=== PATIENT | female | born 1960 | race Caucasian/White ===

== ENCOUNTER 2016-11-30 21:13 | Emergency (ER) | payer MEDICAID ==
[~2016-11-30] VITALS: Ht 162.6 cm; Wt 66.0 kg
[~2016-11-30 21:13] MED LIST: CIPR500T4 PO; NAPR-688 PO
[2016-11-30 21:32] VITALS: Ht 162.6 cm; Wt 66.0 kg
--- NOTE | 2016-12-01 01:16 | ERD ---
ER Documentation Chief Complaint Date/Time DATE: 12/01/16 TIME: 01:11 Chief Complaint Bilateral eye pain X3 days HPI This pleasant 56-year-old female presents in onset of bilateral eye pain, redness, and discharge. Symptoms started 3 days ago. Patient denies any injury , denies any contact with people with similar symptoms. Patient has small children at home reports she is the only person in her house with these symptoms. Patient denies runny nose cough or nasal congestion, denies change in vision, or headache. Patient has tried no [id number]-[id number] eyedrops for symptomatic relief. ROS All systems reviewed and are negative except as per history of present illness. Medications Home Meds Active Scripts Sulfacetamide Sodium* (Bleph-10*) 10% - 3.5 Gm Opht Oint...g., 1 APPLIC BOTH EYES QID, #1 TUB Prov:LOLARADHAVAMSI 12/01/16 Ciprofloxacin Hcl* (Ciprofloxacin Hcl*) 500 Mg Tablet, 500 MG PO BID, #10 TAB Prov:GREENRYANNARENDRA DO 06/13/16 Naproxen* (Naproxen*) 500 Mg Tablet, 375 MG PO BID, #14 TAB Prov:GREENDANARENDRA DO 06/13/16 Allergies Allergies: Coded Allergies: No Known Allergy (Unverified , 06/12/16) PMhx/Soc History of Surgery: Yes (KIDNEY SURGERY 1999) Anesthesia Reaction: No Hx Neurological Disorder: No Hx Respiratory Disorders: No Hx Cardiac Disorders: Yes (HTN) Hx Psychiatric Problems: No Hx Miscellaneous Medical Probl: No Hx Alcohol Use: No Hx Substance Use: No Hx Tobacco Use: No Smoking Status: Never smoker Physical Exam Vitals Vitals stable, triage notes reviewed Physical Exam Const: No acute distress Head: Atraumatic Eyes: Bilateral conjunctiva injected, lid margins intact, mucus and crust noted right eye, no periorbital cellulitis. Eye Exam: Visual Acuity: Visual Bunn: Intact in all four quadrants bilaterally Lac ducts/glands: No swelling Lids w/ evertion: Normal, no foreign body ENT: Normal External Ears, Nose and Mouth, mucous membranes moist Neck: Resp: Chest rise and fall symmetrically, clear to auscultation bilaterally no respiratory distress Cardio: Abd: Skin: No petechiae or rashes Back: Ext: Neur: Awake and alert Psych: Normal Mood and Affect Procedures/MDM This pleasant 56-year-old female presents to the emergency department today with bilateral eye pain and discharge. Symptoms started 3 days ago, patient denies injury or contact with person with similar symptoms. Differential diagnosis includes but not limited to conjunctivitis, allergic conjunctivitis, viral conjunctivitis, eye trauma, stye. Physical exam and history are most consistent with a bacterial conjunctivitis, patient is treated with sulfacetamide ointment, apply 3 times daily 7 days. Return to emergency room for worsening symptoms, symptoms not responding to treatment, change in vision. I feel the patient is stable for discharge at this time. I have discussed results, examination findings, the treatment plan with the patient and family present prior to discharge. Indications for emergent reevaluation, side effects of medication were also discussed. All questions were answered. Patient verbalizes understanding and agrees with plan of care. Departure Diagnosis: Primary Impression: Conjunctivitis of both eyes Conjunctivitis type: unspecified Qualified Code: H10.9 - Conjunctivitis of both eyes, unspecified conjunctivitis type Condition: Good Patient Instructions: Conjunctivitis Caused by Infection [facility] Additional Instructions: Thank you for for coming to [facility] for your care today. Please ask your nurse or provider if you have questions about your care today and do not leave until all your questions have been answered. Please use any medications given as directed and follow-up with your doctor (or the doctor you were referred to) in the next 2-3 days. If you do not have a primary care doctor you may follow up at the [facility] (listed below). You may also use motrin and tylenol as needed for fever and/or pain unless instructed otherwise by your provider or nurse. Indications for more urgent follow-up have been discussed, but you may return to the Emergency Department at ANY time for any worrisome or worsening symptoms. If you have abdominal pain, please know that no test or exam you received is perfect and you should follow up within 8 hours for continued pain. If you had any imaging studies today, such as an X-Ray or CT Scan, these studies will be reviewed later by a radiologist. You will be called if there are important findings that were not identified today, so make sure the contact information you provided at registration is correct. If you received any narcotic pain control medicine today, such as Vicodin, Morphine or Dilaudid, your coordination and judgment may be affected for a number of hours. Please do not drive or operate heavy machinery, and you may want someone to assist you at home. If you were given a prescription for narcotic medication, be aware that it is very addictive- use sparingly and only if necessary. VAMSI DAVILA December 01, 2016 01:16
[2016-12-01] MEDS ORDERED: SULF3.5O15 BOTH EYES (01:17)
== END 2016-12-01 01:53 | disposition home or self-care (01) ==
LOC: FTE 21:13
DX: H10.9 Unspecified conjunctivitis (principal); I10 Essential (primary) hypertension
CPT/HCPCS: 99283

== ENCOUNTER 2018-01-19 19:33 | Emergency (ER) | END 2018-01-20 00:52 | disposition home or self-care (01) ==

== ENCOUNTER 2019-02-11 20:17 | Emergency (ER) | payer MEDICAID ==
[~2019-02-11] VITALS: Ht 154.9 cm; Wt 64.7 kg
[~2019-02-11 20:17] MED LIST changes: +ACET500C5 PO; +CEPH-443 PO; -CIPR500T4 PO; +DICY10CA40 PO; +DOCU-144 PO; +DYAZIDE PO; +LISI40TA3 PO; -NAPR-688 PO
[2019-02-11 20:20] VITALS: Ht 154.9 cm; Wt 64.7 kg
--- NOTE | 2019-02-11 22:10 | ERD ---
ER Documentation Chief Complaint Chief Complaint PELVIC PAIN X3DAYS; NO VAG BLEEDING AT THIS TIME HPI Is a 58-year-old female patient who presents emergency room with complaint of "feeling like something is falling out down there when I walk at the end of the day." + Dysuria, lower pelvic discomfort, no vaginal bleeding. LMP April 2016. G3, P3 all vaginal deliveries, no prior complications, patient reports normal Pap smears, patient denies any history of urinary tract infections. History significant for hypertension. PMD: Bradford Lainez Cabinet Worker: Dr. Phan ROS All systems reviewed and are negative except as per history of present illness. Medications Home Meds Active Scripts Acetaminophen* (Tylophen*) 500 Mg Capsule, 2 CAP PO Q8H PRN for PAIN AND OR ELEVATED TEMP, #20 CAP Prov:BRANDY BEAVER NP 02/11/19 Cephalexin* (Keflex*) 500 Mg Capsule, 500 MG PO BID for CYSTITIS for 5 Days, #10 CAP Prov:BRANDY BEAVER NP 02/11/19 Dicyclomine HCl (Dicyclomine HCl) 10 Mg Capsule, 1 CAP PO TID PRN for PAIN, #20 Prov:SHON NORRIS 01/19/18 Docusate Sodium* (Colace*) 100 Mg Capsule, 100 MG PO TID, #30 CAP Prov:SHON NORRIS 01/19/18 Reported Medications Triamterene-HCTZ (Dyazide) 37.5 - 25 Mg Cap, 1 CAP PO DAILY, CAP 01/19/18 Lisinopril* (Lisinopril*) 40 Mg Tablet, 40 MG PO DAILY, #30 TAB 01/19/18 Allergies Allergies: Coded Allergies: No Known Allergy (Unverified , 01/19/18) PMhx/Soc History of Surgery: Yes (KIDNEY SURGERY 1999) Anesthesia Reaction: No Hx Neurological Disorder: No Hx Respiratory Disorders: No Hx Cardiac Disorders: Yes (HTN) Hx Psychiatric Problems: No Hx Miscellaneous Medical Probl: No Hx Alcohol Use: No Hx Substance Use: No Hx Tobacco Use: No Smoking Status: Never smoker Physical Exam Vitals Vital Signs Date Temp Pulse Resp B/P (MAP) Pulse Ox O2 O2 Flow FiO2 Time Delivery Rate 02/11/19 97.8 65 20 171/89 99 Room Air 23:45 (116) 02/11/19 98.6 79 19 164/78 99 20:20 (106) Physical Exam Const: No acute distress Head: Atraumatic Eyes: Normal Conjunctiva ENT: Normal External Ears, Nose and Mouth. Neck: Full range of motion. No meningismus. Resp: Clear to auscultation bilaterally Cardio: Regular rate and rhythm, no murmurs Abd: Soft, non tender, non distended. Normal bowel sounds Skin: No petechiae or rashes Back: No midline or flank tenderness Ext: No cyanosis, or edema Neur: Awake and alert Psych: Normal Mood and Affect Results 24 hrs Laboratory Tests Test 02/11/19 21:40 02/11/19 21:47 Urine Color YELLOW Urine Clarity CLOUDY Urine pH 8.0 Urine Specific [place] 1.011 Urine Ketones NEGATIVE mg/dL Urine Nitrite NEGATIVE mg/dL Urine Bilirubin NEGATIVE mg/dL Urine Urobilinogen NEGATIVE mg/dL Urine Leukocyte Esterase NEGATIVE Zayra/ul Urine Microscopic RBC 15 /HPF Urine Microscopic WBC 10 /HPF Urine Squamous Epithelial Cells FEW /HPF Urine Amorphous Crystals MODERATE /HPF Urine Bacteria FEW /HPF Urine Hemoglobin 2+ mg/dL Urine Glucose NEGATIVE mg/dL Urine Total Protein NEGATIVE mg/dl Bedside Urine pH (LAB) 7.5 Bedside Urine Protein (LAB) Negative Bedside Urine Glucose (UA) Negative Bedside Urine Ketones (LAB) Negative Bedside Urine Blood 2+ Bedside Urine Nitrite (LAB) Negative Bedside Urine Leukocyte Esterase (L Negative Current Medications Medications Dose Sig/Paige Start Time Status Last (Trade) Ordered Route PRN Stop Time Admin Dose Reason Admin Cephalexin 500 mg ONCE ONCE 02/11/19 DC 02/11/19 (Keflex) PO 23:30 23:36 02/11/19 23:31 Ibuprofen 600 mg ONCE ONCE 02/11/19 DC 02/11/19 (Motrin) PO 23:30 23:35 02/11/19 23:31 Procedures/MDM PROCEDURES/MDM PROCEDURES: Pelvic Exam: Abdomen: Tender at suprapubis/bladder with palpation External Genitalia: Normal Skin, no lesions, no erythema, no prolapse noted Speculum: Normal vaginal mucosa, normal cervical discharge, cervix pink, no lesions, no unusual discharge Bimanual: No adnexal masses or tenderness, No CMT LAB INTERPRETATION: +UTI -Medications: Keflex, ibuprofen Patient tolerated medication well with no adverse reactions. Patient reported improvement in pain. MDM: This is a 58-year-old female patient who presents emergency room with complaint that she has a sensation of vaginal fullness at the end of the day like somethi ng is falling out of her vagina. Also complains of dysuria and lower pelvic pain. Denies bleeding. Pelvic exam did not reveal bladder or vaginal prolapse, or bleeding, or any infectious or anatomical abnormalities. Bimanual palpation did not reveal any masses, tenderness, or concern for neoplasms. Urinalysis suggestive of UTI. Patient will be started on antibiotics today and instructed to follow-up with reel film inspector as she may need to discuss use of pessary or other diagnostic exams. Patient has been instructed on red flag signs and symptoms and when to return to the emergency room. There is low suspicion for pyelonephritis, vaginitis, STI, or interstitial cystitis due to absence of clinical findings that would support a diagnosis more serious than uncomplicated UTI. These diagnoses have been considered and excluded clinically. Nonetheless, it is understood by both the patient and provider that no clinical or diagnostic assessment can entirely exclude such diseases. Patient has been instructed on signs and symptoms of concern or with evolving condition with strict instructions to return to ED for reevaluation. DISPOSITION and PLAN: RX: The patient has been discharge home to follow-up with community physician. Departure Diagnosis: Primary Impression: Cystitis Additional Impression: Disorder of female genital organ Condition: Stable BRANDY BEAVER NP Feb 11, 2019 22:10
[2019-02-11] MEDS ORDERED: IBUPROFEN 600 MG TAB PO ONE (23:30)
[2019-02-11] MEDS ORDERED: CEPHALEXIN 500 MG CAP PO ONE (23:30)
[2019-02-11 23:45] VITALS: BP 171/89; PULSE 65; RESP 20
== END 2019-02-11 23:46 | disposition home or self-care (01) ==
LOC: FTE 20:17
DX: N30.90 Cystitis, unspecified without hematuria (principal); N94.9 Unspecified condition associated with female genital organs and menstrual cycle; I10 Essential (primary) hypertension
CPT/HCPCS: 81001; Z7502; Z7610; 81003; 99284